=== PATIENT | male | born 1970 | race Caucasian/White ===

== ENCOUNTER 2019-07-26 12:57 | Emergency (ER) | payer MEDICAID ==
[~2019-07-26] VITALS: Ht 172.7 cm; Wt 95.0 kg
[~2019-07-26 12:57] MED LIST: ALPR-624 PO; AMI25T PO; BUSP10TA11 PO; CARI350T PO; COLC0.6T67 PO; DOCU50CA4 PO; ESOM20CA PO; ESOM40CA PO; PRED50TA PO
[2019-07-26 13:21] VITALS: BP 135/91
--- NOTE | 2019-07-26 14:53 | NUR ---
Pt unhappy that Provider would not prescribe Prednisone for the hand swelling and asks to speak with MD. Dr Ybarra consulted and agrees with SHUBHAM marquez. Explained to patient the reason for the decision and that MD was willing to come and speak with him. Pt declined to speak directly with him.
== END 2019-07-26 14:58 | disposition home or self-care (01) ==
LOC: ER 12:59
DX: S69.92XA Unspecified injury of left wrist, hand and finger(s), initial encounter (principal); K21.9 Gastro-esophageal reflux disease without esophagitis; G89.29 Other chronic pain; M10.9 Gout, unspecified; Z98.890 Other specified postprocedural states; Z88.8 Allergy status to other drugs, medicaments and biological substances; Z79.899 Other long term (current) drug therapy; W01.0XXA Fall on same level from slipping, tripping and stumbling without subsequent striking against object, initial encounter; Y93.01 Activity, walking, marching and hiking; Y92.89 Other specified places as the place of occurrence of the external cause; Y99.9 Unspecified external cause status
CPT/HCPCS: 73130; 99284